=== PATIENT | female | born 2000 | race African-American/Black ===

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

== ENCOUNTER 2021-04-22 09:09 | Emergency (ER) | payer OTHER ==
[~2021-04-22] VITALS: Ht 154.9 cm; Wt 61.2 kg
[2021-04-22] MEDS ORDERED: FOLIC ACID1 MG (09:45)
== END 2021-04-22 11:55 | disposition home or self-care (01) ==
LOC: ER 09:09
DX: O20.0 Threatened abortion (principal)

== ENCOUNTER 2025-01-02 14:23 | Emergency (ER) | payer OTHER ==
[~2025-01-02] VITALS: Ht 152.4 cm; Wt 61.2 kg
[~2025-01-02 14:23] MED LIST: FOLIC ACID1 MG
[2025-01-02] MEDS ORDERED: FAMOtidine 10 MG/ML (4ML VIAL) IV ONE (16:30)
[2025-01-02] MEDS ORDERED: ONDANSETRON HCL 2 MG/ML VIAL IV ONE (16:30)
[2025-01-02] MEDS ORDERED: BUTALB/ACETAMINOPHEN/CAFFEINE 1 TAB TABLET PO ONE (16:30)
[2025-01-02] MEDS ORDERED: FAMOTIDINE/PF 20 MG/2 ML VIAL ONE (16:42)
[2025-01-02] MEDS ORDERED: ONDANSETRON HCL 2 MG/ML VIAL ONE (16:42)
[2025-01-02 17:34] LABS: BILIRUBIN TOTAL 0.45 mg/dL (0.3-1.2); CALCIUM 9.2 mg/dL (8.5-10.1); CREATININE SERUM 0.58 mg/dL (0.55-1.02); GFR 127.72; GLOBULINA 3.6 G/DL (2.4-3.5); POTASSIUM 3.67 mEq/L (3.5-5.1); TOTAL PROTEIN 7.6 gm/dL (6.4-8.2)
[2025-01-02 18:21] LABS: HEMOGLOBIN 12.7 g/dL (12.0-15.00); MEAN CELL VOLUME 76.5 fL (80.00-100.00); MEAN CORPUSCULAR HEMOGLOBIN 25.6 pg (27.00-32.0); MEAN CORPUSCULAR HGB CONC 33.5 g/dl (32.0-36.0); PLATELET COUNT 213 K/uL (150-450); RED BLOOD COUNT 4.96 M/uL (4.00-6.00); RED CELL DISTRIBUTION WIDTH 13.7 % (11.5-14.5)
[2025-01-02] MEDS ORDERED: PEPCID AC20 MG PO (19:14)
[2025-01-02] MEDS ORDERED: ZOFRAN8 MG PO (19:14)
== END 2025-01-02 19:18 | disposition home or self-care (01) ==
LOC: ER 14:23
PROVIDERS: General Practice
DX: R11.10 Vomiting, unspecified (principal); N28.9 Disorder of kidney and ureter, unspecified; Z20.822 Contact with and (suspected) exposure to COVID-19